=== PATIENT | female | born 1990 | race Caucasian/White ===

== ENCOUNTER → 2016-05-08 | Outpatient (CLI) | payer OTHER ==
[~2016-05-08] MED LIST: IBP600T1 PO
--- NOTE | 2016-05-08 15:30 | Diagnostic Imaging Report ---
OB ultrasound. INDICATION: survey. FINDINGS: heart rate is 152 beats per minute. The placenta is anterior. There is no placenta previa. Adequate amniotic fluid is seen. The lateral ventricles are not enlarged. The posterior fossa appears unremarkable. The four-chamber view, the stomach, the kidneys, the spine, cord insertion, and three-vessel cord and urinary bladder appear unremarkable. The growth parameters are all around 19 weeks and 6 days, compatible with the current gestational age of 19 weeks and 0 day based on provided JANIYA of 10/02/[address] Lima. IMPRESSION: Completed survey. Dictated by: Dictated on workstation # [id number]
== END ==
LOC: RAD 12:57
PROVIDERS: ATTEND Nurse Practitioner
DX: Z34.92 Encounter for supervision of normal pregnancy, unspecified, second trimester (principal)
CPT/HCPCS: 76805

== ENCOUNTER 2016-09-03 19:57 | Outpatient (CLI) | payer OTHER ==
[~2016-09-03] VITALS: Ht 172.7 cm; Wt 83.6 kg
[2016-09-03 20:02] VITALS: BP 121/71
[2016-09-03 20:21] LABS: BILIRUBIN,URINE NEGATIVE (NEGATIVE); KETONES,URINE NEGATIVE (NEGATIVE); LEUKOCYTE ESTERASE ,URINE 3+ (NEGATIVE); NITRITE,URINE NEGATIVE (NEGATIVE); PH,URINE 8 (5-9); PROTEIN,URINE NEGATIVE (NEGATIVE); UROBILINOGEN,URINE NORMAL (NORMAL)
[2016-09-03 20:29] LABS: SQUAMOUS EPITHELIAL CELL,UR 25-50 /HPF; WBC,URINE 25-50 /HPF
--- NOTE | 2016-09-04 11:34 | Physician Query-Final Dx ---
ANTHONY ELLIS 09/04/16 1134: Clinic Account Progress/Dx Physician Query: Please give diagnosis Date of Service Sep 03, 2016 at 19:57 ESTEFANÍA OROZCO DO 10/03/16 0645: Clinic Account Progress/Dx DIAGNOSIS: Diagnosis threatened labor, third trimester, ANTHONY ELLIS Sep 04, 2016 11:34 ESTEFANÍA OROZCO DO Oct 03, 2016 06:45
== END 2016-09-03 21:35 | disposition home or self-care (01) ==
LOC: WSo 19:57 → LDRP 19:57 → WSo 21:35
PROVIDERS: ATTEND Obstetrics & Gynecology
DX: O47.03 False labor before 37 completed weeks of gestation, third trimester (principal); Z3A.35 35 weeks gestation of pregnancy
CPT/HCPCS: 81000; 87088; 99213

== ENCOUNTER 2016-09-22 20:10 | Outpatient (CLI) | payer OTHER ==
[~2016-09-22] VITALS: Ht 172.7 cm; Wt 84.5 kg
[2016-09-22] MEDS ORDERED: D5 LR IV SOLUTION 1,000 ML IV ONE (20:50)
[2016-09-22 21:00] VITALS: BP 136/78
[2016-09-22] MEDS: D5 LR IV SOLUTION 1,000 ML IV SCH (21:10)
[2016-09-22 21:39] LABS: BILIRUBIN,URINE NEGATIVE (NEGATIVE); KETONES,URINE 2+ (NEGATIVE); LEUKOCYTE ESTERASE ,URINE 3+ (NEGATIVE); NITRITE,URINE NEGATIVE (NEGATIVE); PH,URINE 6 (5-9); PROTEIN,URINE 1+ (NEGATIVE); UROBILINOGEN,URINE NORMAL (NORMAL)
[2016-09-22 21:42] LABS: BASOPHILS % (AUTO) 0 % (0-10); EOSINOPHILS % (AUTO) 0 % (0-10); LYMPHOCYTES # (AUTO) 1.9 X 10^3 (1.0-4.0); LYMPHOCYTES % (AUTO) 14 % (12-44); MEAN CORPUSCULAR HEMOGLOBIN 31 PG (25-34); MEAN CORPUSCULAR HGB CONC 35 G/DL (32-36); MEAN CORPUSCULAR VOLUME 88 FL (80-99); MONOCYTES # (AUTO) 0.7 X 10^3 (0.0-1.0); MONOCYTES % (AUTO) 5 % (0-12); NEUTROPHILS # (AUTO) 11.1 X 10^3 (1.8-7.8); NEUTROPHILS % (AUTO) 81 % (42-75); PLATELET COUNT 254 10^3/uL (130-400); RED BLOOD COUNT 4.16 10^6/uL (4.35-5.85); WHITE BLOOD COUNT 13.8 10^3/uL (4.3-11.0)
[2016-09-22 21:49] LABS: CALCIUM OXALATE CRYSTALS,UR LARGE /LPF; SQUAMOUS EPITHELIAL CELL,UR 25-50 /HPF; WBC,URINE 25-50 /HPF
[2016-09-22 22:00] VITALS: BP 144/76
[2016-09-22 22:50] LABS: BILIRUBIN,URINE NEGATIVE (NEGATIVE); KETONES,URINE NEGATIVE (NEGATIVE); LEUKOCYTE ESTERASE ,URINE NEGATIVE (NEGATIVE); NITRITE,URINE NEGATIVE (NEGATIVE); PH,URINE 6 (5-9); PROTEIN,URINE NEGATIVE (NEGATIVE); UROBILINOGEN,URINE NORMAL (NORMAL)
[2016-09-22 23:00] VITALS: BP 122/68
[2016-09-22 23:05] LABS: SQUAMOUS EPITHELIAL CELL,UR 0-2 /HPF; WBC,URINE 0-2 /HPF
[2016-09-22 23:18] LABS: ALANINE AMINOTRANSFERASE 11 U/L (0-55); ALBUMIN 3.2 GM/DL (3.2-4.5); ANION GAP 11 MMOL/L (5-14); ASPARTATE AMINO TRANSFERASE 13 U/L (5-34); BILIRUBIN,TOTAL 0.6 MG/DL (0.1-1.0); BLOOD UREA NITROGEN 8 MG/DL (7-18); BUN/CREATININE RATIO 11; CALCIUM 8.5 MG/DL (8.5-10.1); CARBON DIOXIDE 19 MMOL/L (21-32); CHLORIDE 107 MMOL/L (98-107); CREATININE SERUM 0.73 MG/DL (0.60-1.30); GFR ESTIMATED > 60; GLUCOSE 100 MG/DL (70-105); LACTATE DEHYDROGENASE 185 U/L (125-220); POTASSIUM 3.5 MMOL/L (3.6-5.0); SODIUM 137 MMOL/L (135-145); TOTAL PROTEIN 5.8 GM/DL (6.4-8.2); URIC ACID 4.1 MG/DL (2.6-7.2)
[2016-09-23] VITALS: BP 122/68
[2016-09-23] MEDS: D5 LR IV SOLUTION 1,000 ML IV SCH (01:10)
[2016-09-23 02:00] VITALS: BP 113/59
--- NOTE | 2016-09-23 07:02 | Discharge Instructions ---
Discharge Instructions Discharge Medications New, Converted or Re-Newed RX: Other Patient Instructions Patient Instructions: as directed Return to The Hospital For: as directed Activity & Diet Discharge Diet: No Restrictions Activity as Tolerated: Yes Orders-Post D/C & Referrals return to clinic as scheduled with Dr. Lima return for any signs symptoms and indications of labor WILLIAM SHARIF MD Sep 23, 2016 7:02 am
--- NOTE | 2016-09-23 07:05 | History & Physical ---
History and Physical Date Seen by Provider: Sep 23, 2016 Time Seen by Provider: 07:02 this patient is a 26-year-old white female patient Dr. Phillips who presented last evening with contractions every 3-4 minutes. She failed to make cervical change through the night. He was hydrated and her contractions gradually decreased. She denies rupture membranes or bleeding. Allergies are none Medications are none Medical social and surgical histories are per her antepartum record HEENT exam is normal Neck is supple no lymphadenopathy no thyromegaly Abdomen is gravid soft nontender nondistended Extreme show no clubbing or cyanosis. There is some pretibial pitting edema that is normal. Exam per labor and delivery nurse shows a cervix 1 1/2 cm on admission and no change through the evening and night and in the morning. monitor initially showed contractions every 2-4 minutes. those contractions spaced out to irregular occasional less than two an hour Vital Signs Date Time Temp Pulse Resp B/P (MAP) Pulse Ox O2 Delivery O2 Flow Rate FiO2 09/23/16 06:00 18 Room Air 09/23/16 05:00 18 Room Air 09/23/16 04:00 18 Room Air 09/23/16 03:00 18 Room Air 09/23/16 02:00 60 18 113/59 Room Air 09/23/16 01:00 18 Room Air 09/23/16 00:00 62 18 122/68 Room Air 09/22/16 23:00 62 18 122/68 Room Air 09/22/16 22:00 70 18 144/76 Room Air 09/22/16 21:00 98.4 73 18 136/78 Room Air vital signs are stable. Patient is afebrile. Laboratory Tests 09/22/16 21:30 patient's lab work is normal. Assessment and plan 38+ week gestation with false labor. Patient will be allowed discharge home with follow-up in clinic with Dr. Lima scheduled Allergies and Home Medications Allergies Coded Allergies: No Known Drug Allergies (Verified Allergy, Unknown, 10/17/08) Home Medications No Active Prescriptions or Reported Meds WILLIAM SHARIF MD Sep 23, 2016 7:05 am
== END 2016-09-23 08:25 | disposition home or self-care (01) ==
LOC: LDRP 20:10 → WSo 20:10
PROVIDERS: ATTEND Obstetrics & Gynecology
DX: O47.1 False labor at or after 37 completed weeks of gestation (principal); Z3A.38 38 weeks gestation of pregnancy
CPT/HCPCS: 36415; 80053; 81000; 82570; 83615; 84156; 84550; 85025; 87088; 96360; 96361; 99213

== ENCOUNTER 2016-09-26 00:52 | Inpatient (IN) | payer OTHER ==
[~2016-09-26] VITALS: Ht 172.7 cm; Wt 84.5 kg
[2016-09-26] MEDS ORDERED: PREN-37 PO (01:35)
[2016-09-26] MEDS ORDERED: SUFENTA 0.6MCG/ML BUPIVA 0.125 0 ML ONE (01:49)
[2016-09-26] MEDS ORDERED: D5 LR IV SOLUTION 1,000 ML IV SCH (01:51)
[2016-09-26] MEDS ORDERED: fentaNYL INJECTION 100 MCG/2 ML AMP IVP ONE (02:00)
[2016-09-26] MEDS ORDERED: MINERAL OIL CONCENTRATE 99.9% 15 ML UDC TOP PRN (02:00)
[2016-09-26 02:08] LABS: BASOPHILS % (AUTO) 0 % (0-10); EOSINOPHILS # (AUTO) 0.1 10^3/uL (0.0-0.3); EOSINOPHILS % (AUTO) 1 % (0-10); LYMPHOCYTES # (AUTO) 2.7 X 10^3 (1.0-4.0); LYMPHOCYTES % (AUTO) 19 % (12-44); MEAN CORPUSCULAR HEMOGLOBIN 30 PG (25-34); MEAN CORPUSCULAR HGB CONC 35 G/DL (32-36); MEAN CORPUSCULAR VOLUME 88 FL (80-99); MONOCYTES # (AUTO) 0.9 X 10^3 (0.0-1.0); MONOCYTES % (AUTO) 7 % (0-12); NEUTROPHILS # (AUTO) 10.4 X 10^3 (1.8-7.8); NEUTROPHILS % (AUTO) 74 % (42-75); PLATELET COUNT 267 10^3/uL (130-400); RED CELL DISTRIBUTION WIDTH 13.1 % (10.0-14.5); WHITE BLOOD COUNT 14.1 10^3/uL (4.3-11.0)
[2016-09-26] MEDS ORDERED: OXYTOCIN/NORMAL SALINE 500 ML IV ONE (02:19)
--- OUTSIDE RECORDS SUMMARY | 2016-09-26 02:25 | XMS REPORT | CCD ---
Author Author MAKSIM FENG Organization Unknown Address [address] [facility] [address] [place], [place] [id number] Care Team Providers Care Veterinary Bacteriologist Name Role Phone HANDSHY EREDGARDO MD Attphys HANDSHY ER, EDGARDO LAZCANO Prisurg Vital Signs Unknown or Not Available. Allergies Allergy Code Allergy Type Reaction Status No Known Allergies 0 No known allergies Active Procedures Unknown or Not Available. History of Immunizations Unknown or Not Available. Problems Unknown or Not Available. Results Unknown or Not Available. Active Medications Unknown or Not Available. Medications Administered During Visit Unknown or Not Available. Encounters Encounter Diagnosis Diagnosis Code Start Date Intestinal infectious disease [id number] 02/27/2015 Social History Smoking Status Code Start Date End Date Never smoker [id number] Patient Decision Aids Unknown or Not Available. Discharge Instructions You were admitted to [facility] on 02/27/2015 with a principal diagnosis of Intestinal infectious disease . You were discharged from [facility] on 02/27/2015. Should you have any questions prior to discharge, please contact a member of your healthcare team. If you have left the hospital and have any questions, please contact your primary care physician. Chief Complaint and Reason For Visit Chief Complaint Date of Onset ABDOMINAL PAIN DIARRHEA Function Status Unknown or Not Available. Plan of Care Unknown or Not Available. Referral/Transition of Care Unknown or Not Available.
--- OUTSIDE RECORDS SUMMARY | 2016-09-26 02:25 | XMS REPORT | CCD ---
Author Author [facility] Unknown Address [address] [facility] [address] [place] [address] Care Team Providers Care Pressed Or Blown Glass Worker Name Role Phone PHILIP LAZCANO, SHIN Silvestre Attphyjosé miguel PHILIP LAZCANO, SHIN Sanches Allergies Allergy Code Allergy Type Reaction Status No Known Allergies 0 Drug allergy Active Active Medications Unknown or Not Available. Problems Unknown or Not Available. Procedures Procedure Code Procedure Type Date ^UA AUTO DIPSTICK ONLY 073210332 SNOMED CT 01/09/2016 ^CBC W/AUTO DIFF [id number] SNOMED CT 01/09/2016 UA ROUTINE C&S IF IND 849843733 SNOMED [address] 01/09/[address] 01/09/2016 C REACTIVE PROTEIN 19126073 SNOMED CT 01/09/2016 COMPREHENSIVE METABOLIC PANEL 216122230 SNOMED CT 2015 CBC W/ AUTO DIFF (RFLX MAN DIFF IF IND) 4721211 SNOMED CT 01/09/2016 Results COMPREHENSIVE METABOLIC PANEL - Collect Date/Time: 01/09/2016 00:15 Test Name Code Test Result Test Units Test Ref Range GLUCOSE 2345-7 91 MG/DL L=70 H=100 SODIUM 2951-2 141 MEQ/L L=135 H=148 POTASSIUM 2823-3 3.8 MEQ/L L=3.5 H=5.3 CHLORIDE 2075-0 109 MEQ/L L=96 H=110 CO2 2028-9 23 MEQ/L L=22 H=29 BUN 3094-0 8 MG/DL L=8 H=22 CREATININE 2160-0 0.8 MG/DL L=0.6 H=1.6 SGOT/AST 1920-8 15 IU/L L=10 H=40 SGPT/ALT 1742-6 15 IU/L L=8 H=54 ALK PHOS 6768-6 57 IU/L L=35 H=115 TOTAL PROTEIN 2885-2 6.1 G/DL L=5.5 H=8.5 ALBUMIN 1751-7 4.0 G/DL L=3.1 H=5.4 TOTAL BILI 1975-2 0.8 MG/DL L=0.0 H=1.5 CALCIUM 67507-8 8.9 MG/DL L=8.2 H=10.6 AGE 25 yrs GFR NonAA 87 GFR AA 105 eGFR >60 N/A eGFR AA* >60 N/A CBC W/ AUTO DIFF (RFLX MAN DIFF IF IND) - Collect Date/Time: 01/09/2016 00:15 Test Name Code Test Result Test Units Test Ref Range WBC 48898-3 11.2 TH/CMM L=4.5 H=10.8 RBC 789-8 4.44 ML/CMM L=4.20 H=5.40 HGB 718-7 13.2 G/DL L=12.0 H=16.0 HCT 4544-3 38.5 % L=37.0 H=47.0 MCV 87 FL L=81 H=99 MCH 29.7 PG L=27.0 H=33.0 MCHC 34.3 G/DL L=31.0 H=36.0 RDW SD 38 FL L=36 H=50 RDW CV 11.9 % L=0.0 H=14.8 MPV 9.0 FL L=9.3 H=12.5 PLT 777-3 212 TH/CMM L=130 H=440 NRBC# 0.00 TH/CMM L=0.00 H=0.00 NRBC% 0.0 /100WBC L=0.0 H=2.0 %NEUT 79.0 % %LYMP 14.6 % %MONO 5.0 % %EOS 0.7 % %BASO 0.3 % #NEUT 8.81 TH/CMM L=2.10 H=8.20 #LYMP 1.63 TH/CMM L=0.90 H=5.20 #MONO 0.56 TH/CMM L=0.16 H=1.00 #EOS 0.08 TH/CMM L=0.00 H=0.80 #BASO 0.03 TH/CMM L=0.00 H=0.20 MANUAL DIFF NOT IND N/A UA ROUTINE C&S IF IND - Collect Date/Time: 01/09/2016 00:28 Test Name Code Test Result Test Units Test Ref Range COLOR YELLOW N/A NL: YELLOW APPEARANCE CLEAR N/A NL: CLEAR SPEC GRAV 1.010 N/A NL: 1.002 - 1.022 pH 7.5 N/A NL: 5 - 9 PROTEIN NEGATIVE N/A NL: NEGATIVE mg/dl GLUCOSE NEGATIVE N/A NL: NEGATIVE mg/dl KETONE TRACE N/A NL: NEGATIVE mg/dl BILIRUBIN NEGATIVE N/A NL: NEGATIVE BLOOD NEGATIVE N/A NL: NEGATIVE NITRITE NEGATIVE N/A NL: NEGATIVE LEUK SCREEN NEGATIVE N/A NL: NEGATIVE MICRO INDICATED? NOT INDICATED N/A C REACTIVE PROTEIN - Collect Date/Time: 01/09/2016 00:15 Test Name Code Test Result Test Units Test Ref Range C REACTIVE PROTEIN 1988-5 <0.5 MG/DL L=0.0 H= 1.0 TEST - Collect Date/Time: 01/09/2016 00:15 Test Name Code Test Result Test Units Test Ref Range TEST 2118-8 NEGATIVE N/A Function Status Unknown or Not Available. History of Immunizations Unknown or Not Available. Plan of Treatment Unknown or Not Available. Social History Smoking Status Code Start Date End Date Never smoker [id number] Vital Signs Unknown or Not Available. Function Status Unknown or Not Available. Goals Unknown or Not Available. ASSESSMENTS Unknown or Not Available. Health Concerns Section Unknown or Not Available.
--- OUTSIDE RECORDS SUMMARY | 2016-09-26 02:25 | XMS REPORT ---
Author Author Viviana Moore Organization [facility] Address [address] [place], [place] [address] Care Team Providers Care Adult Protective Caseworker Name Role Phone ObduliotylerViviana najera PCP [phone] TeresaVivianaKourtney PreferredProvider [phone] Allergies and Adverse Reactions Name Reaction Notes No known allergies Plan of Treatment Not available. Medications Active Name Start Date Estimated Completion Date SIG Comments Vitamin oral tablet take 1 tablet by oral route once daily amoxicillin 875 mg oral tablet 05/30/2016 06/09/2016 take 1 tablet (875 mg) by oral route every 12 hours for 10 days Problem List Not available. Vital Signs Date Time BP-Sys(mm[Hg] BP-Larisa(mm[Hg]) HR(bpm) RR(rpm) Temp WT HT HC BMI BSA BMI Percentile O2 Sat(%) 05/30/2016 4:14:00 PM 128 mmHg 76 mmHg 76 bpm 18 rpm 98.4 F 170.062 lbs 66 in 27.45 kg/m2 1.90 m2 98 % Social History Name Description Comments Tobacco Never smoker Alcohol Current some day twice monthly Caffeine Current every day Teacher History of Procedures Not available. Results Summary Not available. History Of Immunizations Not available. History of Past Illness Name Date of Onset Comments No significant medical history Purulent rhinitis May 30 2016 4:16PM Disorder of eustachian tube, bilateral May 30 2016 4:16PM IUP (intrauterine ), incidental May 30 2016 4:16PM Payers Insurance Name Company Name Plan Name Plan Number Policy Number Policy Group Number Start Date Yossi Sy [id number] N/A History of Encounters Visit Date Visit Type Provider 05/30/2016 Office visit Viviana Moore CLAMSHELL ENGINEER
--- OUTSIDE RECORDS SUMMARY | 2016-09-26 02:25 | XMS REPORT ---
Author Author Viviana Moore Organization [facility] Address [address] [place], [place] [id number] Care Team Providers Care Flash Welder Name Role Phone ObduliodorashaquilleVivianaKourtney PCP [phone] TeresaVivianaKourtney PreferredProvider [phone] Allergies and Adverse Reactions Name Reaction Notes No known allergies Plan of Treatment Not available. Medications Active Name Start Date Estimated Completion Date SIG Comments Vitamin oral tablet take 1 tablet by oral route once daily cefuroxime axetil 500 mg oral tablet 06/17/2016 06/27/2016 take 1 tablet (500 mg) by oral route every 12 hours for 10 days Name Start Date Expiration Date SIG Comments amoxicillin 875 mg oral tablet 05/30/2016 06/09/2016 take 1 tablet (875 mg) by oral route every 12 hours for 10 days Problem List Not available. Vital Signs Date Time BP-Sys(mm[Hg] BP-Larisa(mm[Hg]) HR(bpm) RR(rpm) Temp WT HT HC BMI BSA BMI Percentile O2 Sat(%) 06/17/2016 2:23:00 PM 112 mmHg 64 mmHg 88 bpm 18 rpm 97.9 F 174 lbs 66 in 28.08 kg/m2 1.92 m2 99 % 05/30/2016 4:14:00 PM 128 mmHg 76 mmHg 76 bpm 18 rpm 98.4 F 170.062 lbs 66 in 27.4485 kg/m 1.8953 m 98 % Social History Name Description Comments [...] (intrauterine ), incidental May 30 2016 4:16PM Purulent rhinitis Jun 17 2016 2:25PM Bronchitis Jun 17 2016 2:25PM IUP (intrauterine ), incidental Jun 17 2016 2:25PM Acute recurrent pansinusitis Jun 17 2016 2:25PM Payers Insurance Name Company Name Plan Name Plan Number Policy Number Policy Group Number Start Date Yossi Sy [id number] N/A History of Encounters Visit Date Visit Type Provider 06/17/2016 Office visit Viviana Moore APRN 05/30/2016 Office visit Viviana Moore APRN
[2016-09-26] MEDS ORDERED: OXYTOCIN/NORMAL SALINE 500 ML IV SCH (02:45)
[2016-09-26] MEDS ORDERED: BENZOCAINE/MENTHOL (DERMOPLAST) 56 ML CAN TP PRN (02:45)
[2016-09-26] MEDS ORDERED: WITCH HAZEL(TUCKS) 40 EA JAR TOP PRN (02:45)
[2016-09-26] MEDS ORDERED: MEASLES,MUMPS,RUBELLA 1 EA INJ SQ ONE (02:45)
[2016-09-26] MEDS ORDERED: TETANUS,DIPTH,PERTUSS P/F (BOOSTRIX) 0.5 ML VIAL IM ONE (02:45)
--- NOTE | 2016-09-26 02:48 | History & Physical-OB ---
OB - Chief Complaint & HPI Date/Time Date of Admission: Date of Admission: Sep 26, 2016 at 01:50 Chief Complaint/History Hx : 3 Hx Para: 2 Expected Date of Delivery: Oct 02, 2016 Gestational Age in Weeks: 39 Allergies and Home Medications Allergies Coded Allergies: No Known Drug Allergies (Verified Allergy, Unknown, 10/17/08) Home Medications Vit/Iron Fumarate/FA 1 Each Tablet, 1 EACH PO DAILY, (Reported) OB - History Hx of Present Care: Yes Obstetrical History Hx : 3 Hx Para: 2 Hx Termination: No Hx Total # of Abortions (Spona: 0 Hx Multiple Gestation: No Hx Stillbirth: No Hx Complication: No Hx Induced Hypertens: No Hx Maternal Gestational Diabet: No Delivery History Hx Dystocia: No Hx Large For Gestational Age I: No Hx Small for Gestational Age I: No Hx Section: No Hx Vaginal Delivery Post C-Sec: No Hx Blood Disorders: No Social History/Family History Recent Infectious Disease Expo: No OB - Admission Exam Labs Laboratory Tests Test 09/26/16 01:50 Range/Units White Blood Count 14.1 H 4.3-11.0 10^3/uL Red Blood Count 4.30 L 4.35-5.85 10^6/uL Hemoglobin 13.0 11.5-16.0 G/DL Hematocrit 38 35-52 % Mean Corpuscular Volume 88 80-99 FL Mean Corpuscular Hemoglobin 30 25-34 PG Mean Corpuscular Hemoglobin Concent 35 32-36 G/DL Red Cell Distribution Width 13.1 10.0-14.5 % Platelet Count 267 130-400 10^3/uL Mean Platelet Volume 9.0 7.4-10.4 FL Neutrophils (%) (Auto) 74 42-75 % Lymphocytes (%) (Auto) 19 12-44 % Monocytes (%) (Auto) 7 0-12 % Eosinophils (%) (Auto) 1 0-10 % Basophils (%) (Auto) 0 0-10 % Neutrophils # (Auto) 10.4 H 1.8-7.8 X 10^3 Lymphocytes # (Auto) 2.7 1.0-4.0 X 10^3 Monocytes # (Auto) 0.9 0.0-1.0 X 10^3 Eosinophils # (Auto) 0.1 0.0-0.3 10^3/uL Basophils # (Auto) 0.0 0.0-0.1 10^3/uL ESTEFANÍA OROZCO DO Sep 26, 2016 02:48
--- NOTE | 2016-09-26 02:49 | OB Labor & Delivery Record ---
Vag Delivery Note Vag Delivery Note Date of Delivery: 09/26/16 Preoperative Diagnosis: Adelia Gonzalez is a 26 /Para 3 / 2,Gestational Age at 39 1/7 weeks who presented in labor Postoperative Diagnosis: Same Surgeon: ESTEFANÍA OROZCO Delivery Type: precipitous vaginal Findings: Viable male , apgars 9/9, weight pending Lacerations: Intact placenta with 3 vessel cord. No nuchal cord, body cord or shoulder dystocia Estimated Blood Loss: 200 ml Complications: None Condition: Stable Description of Procedure: The patient is a 26 /Para 3 / 2,Gestational Age at 39 1/7 weeks who presented in labor. She was admitted and informed consent was obtained. Her labor course was remarkable for precipitous delivery. She arrived at the hospital from [place] at approximately 1:40 am. She had SROM approximately 1: 45 and I was called at 1:49 and told she was 6 cm dilated. She was admitted. At 0200 bolus started for epidural. At 0218 I was called less than 15 minutes later stating she was complete. I was already on route to the hospital. At 0225 she was noted to be . As I arrived at she was delivering the baby on to the bed in a semi seated position. She delivered easily onto the bed. The noses and oropharynx were bulb suctioned. The cord was doubly clamped and cut and the infant was handed off to the pediatric staff. An intact placenta with 3-vessel cord delivered via Pilar and there was found to be minimal bleeding.~ Vigorous fundal massage was performed and the fundus was found to be firm. IV oxytocin was given. Examination of the vagina and perineum revealed a no laceration but bruising and small abrasions were noted. These did not need repair. Following delivery , sponge, instrument and needle counts were correct. Mom and baby were both in stable condition in the labor suite. Vitals - Labs Labs Laboratory Tests 09/26/16 01:50: White Blood Count 14.1H, Red Blood Count 4.30L, Hemoglobin 13.0, Hematocrit 38, Mean Corpuscular Volume 88, Mean Corpuscular Hemoglobin 30, Mean Corpuscular Hemoglobin Concent 35, Red Cell Distribution Width 13.1, Platelet Count 267, Mean Platelet Volume 9.0, Neutrophils (%) (Auto) 74, Lymphocytes (%) (Auto) 19, Monocytes (%) (Auto) 7, Eosinophils (%) (Auto) 1, Basophils (%) (Auto) 0, Neutrophils # (Auto) 10.4H, Lymphocytes # (Auto) 2.7, Monocytes # (Auto) 0.9, Eosinophils # (Auto) 0.1, Basophils # (Auto) 0.0 ESTEFANÍA OROZCO DO Sep 26, 2016 02:49
[2016-09-26] MEDS: IBUPROFEN 600 MG (MOTRIN) TAB PO SCH ×4 (03:58→23:53)
[2016-09-26 04:30] VITALS: BP 110/64
[2016-09-26] MEDS ORDERED: CATHETER FLUSH 10 ML SYR IV SCH ×2 (06:00)
[2016-09-26] MEDS: PRENATAL VITAMIN 1 EA TAB PO SCH (08:22)
[2016-09-26] MEDS: FERROUS SULF 325 MG (IRON) TAB PO SCH (08:23)
[2016-09-26] MEDS: DOCUSATE SODIUM 100 MG (COLACE) CAP PO SCH ×2 (08:23→21:00)
[2016-09-26 08:30] VITALS: BP 101/68
[2016-09-26 13:00] VITALS: BP 109/67
[2016-09-26 18:02] VITALS: BP 125/78
[2016-09-26 20:40] VITALS: BP 101/50
[2016-09-26 23:59] VITALS: BP 111/70
[2016-09-27 04:15] VITALS: BP 107/67
[2016-09-27 06:46] LABS: BASOPHILS % (AUTO) 0 % (0-10); EOSINOPHILS # (AUTO) 0.2 10^3/uL (0.0-0.3); EOSINOPHILS % (AUTO) 2 % (0-10); LYMPHOCYTES # (AUTO) 2.8 X 10^3 (1.0-4.0); LYMPHOCYTES % (AUTO) 26 % (12-44); MEAN CORPUSCULAR HEMOGLOBIN 31 PG (25-34); MEAN CORPUSCULAR HGB CONC 35 G/DL (32-36); MEAN CORPUSCULAR VOLUME 90 FL (80-99); MEAN PLATELET VOLUME 8.8 FL (7.4-10.4); MONOCYTES # (AUTO) 0.7 X 10^3 (0.0-1.0); MONOCYTES % (AUTO) 7 % (0-12); NEUTROPHILS # (AUTO) 7.2 X 10^3 (1.8-7.8); NEUTROPHILS % (AUTO) 66 % (42-75); PLATELET COUNT 238 10^3/uL (130-400); RED CELL DISTRIBUTION WIDTH 13.4 % (10.0-14.5); WHITE BLOOD COUNT 10.9 10^3/uL (4.3-11.0)
[2016-09-27] MEDS: IBUPROFEN 600 MG (MOTRIN) TAB PO SCH ×2 (06:53→09:38)
[2016-09-27 08:15] VITALS: BP 98/63
--- NOTE | 2016-09-27 08:34 | Discharge Inst-Women's Service ---
Discharge Inst-Women's Serv Depart Medication/Instructions New, Converted or Re-Newed RX: RX on Chart Consults/Follow Up Additional Follow Up: Yes Orders/Referrals Dr. Lima in 6 weeks Activity Activity: Activity as Tolerated Driving Instructions: No Driving for 1 Week NO SMOKING: NO SMOKING Nothing Inside Vagina: No Douching, No [place], No Tampons Diet Discharge Diet: No Restrictions Symptoms to Report to : Bleeding Excessive, Pain Increased, Fever Over 101 Degrees F, Vaginal Bleeding Increase, Questions/Concerns For Any Problems or Questions: Contact Your Physician Skin/Wound Care Bathing Instructions: Shower (x 2weeks) SHIN BACH DO Sep 27, 2016 8:33 am
[2016-09-27] MEDS ORDERED: BENZ56AE2 TP (08:35)
[2016-09-27] MEDS ORDERED: DOCU100C37 PO (08:35)
[2016-09-27] MEDS ORDERED: IBUP-1773 PO (08:35)
[2016-09-27] MEDS ORDERED: FERR-74 PO (08:35)
--- NOTE | 2016-09-27 08:36 | Progress Note-Standard ---
Standard Progress Note Progress Notes/Assess & Plan Date Seen by Provider: Sep 27, 2016 Time Seen by Provider: 08:20 Progress/Assessment & Plan Patient doing well PPD 1 NVD. Reports lochia is light. Pain well controlled. Ambulating and voiding freely. Vital Sign - Last 24 Hours 09/26/16 09/26/16 09/26/16 09/26/16 13:00 18:02 20:40 23:59 Temp 98.4 98.1 97.8 97.2 Pulse 73 58 86 80 Resp 20 20 18 17 B/P (MAP) 109/67 125/78 101/50 111/70 Pulse Ox 98 98 O2 Delivery Room Air Room Air 09/27/16 04:15 Temp 98.0 Pulse 67 Resp 17 B/P (MAP) 107/67 Pulse Ox 98 O2 Delivery Room Air Uterine fundus firm and palpated below umbilicus Laboratory Tests Test 09/27/16 06:30 Range/Units White Blood Count 10.9 4.3-11.0 10^3/uL Red Blood Count 3.80 L 4.35-5.85 10^6/uL Hemoglobin 11.8 11.5-16.0 G/DL Hematocrit 34 L 35-52 % Mean Corpuscular Volume 90 80-99 FL Mean Corpuscular Hemoglobin 31 25-34 PG Mean Corpuscular Hemoglobin Concent 35 32-36 G/DL Red Cell Distribution Width 13.4 10.0-14.5 % Platelet Count 238 130-400 10^3/uL Mean Platelet Volume 8.8 7.4-10.4 FL Neutrophils (%) (Auto) 66 42-75 % Lymphocytes (%) (Auto) 26 12-44 % Monocytes (%) (Auto) 7 0-12 % Eosinophils (%) (Auto) 2 0-10 % Basophils (%) (Auto) 0 0-10 % Neutrophils # (Auto) 7.2 1.8-7.8 X 10^3 Lymphocytes # (Auto) 2.8 1.0-4.0 X 10^3 Monocytes # (Auto) 0.7 0.0-1.0 X 10^3 Eosinophils # (Auto) 0.2 0.0-0.3 10^3/uL Basophils # (Auto) 0.0 0.0-0.1 10^3/uL Diagnosis: PPD 1 NVD P: Continue routine PP care Discharge later today. SHIN BACH DO Sep 27, 2016 8:36 am
[2016-09-27] MEDS: FERROUS SULF 325 MG (IRON) TAB PO SCH (09:37)
[2016-09-27] MEDS: PRENATAL VITAMIN 1 EA TAB PO SCH (09:37)
[2016-09-27] MEDS: DOCUSATE SODIUM 100 MG (COLACE) CAP PO SCH (09:38)
[2016-09-27 11:25] VITALS: BP 98/63
== END 2016-09-27 11:25 | disposition home or self-care (01) | DRG 775 ==
LOC: WSo 00:52 → LDRP 00:54 → WSo 01:45 → LDRP 01:50
PROVIDERS: ADMIT Obstetrics & Gynecology; ATTEND Obstetrics & Gynecology
PROC: 10E0XZZ Delivery of Products of Conception, External Approach (ICD-10-PCS; principal; 2016-09-26)
DX: O80 Encounter for full-term uncomplicated delivery (principal); Z3A.39 39 weeks gestation of pregnancy; Z37.0 Single live birth
CPT/HCPCS: 36415; 85025; 86850; 86900; 86901; 99212